=== PATIENT | female | born 1980 | race Caucasian/White ===

== ENCOUNTER → 2017-06-26 | Outpatient (CLI) | payer OTHER | END | disposition home or self-care (01) | LOC: MMGSC 14:01 | PROVIDERS: ATTEND Family Medicine | DX: E03.9 Hypothyroidism, unspecified (principal) | CPT/HCPCS: 36415; 84439; 84443 ==

== ENCOUNTER → 2018-10-16 | Outpatient (CLI) | payer OTHER ==
--- NOTE | 2018-10-16 10:43 | US ---
EXAMINATION TYPE: US pelvic complete DATE OF EXAM: 10/16/2018 COMPARISON: CT 2013 CLINICAL HISTORY: N92.0 Excessive and frequent menstruation.... TECHNIQUE: Transabdominal (TA). Date of LMP: 10/15/2018 EXAM MEASUREMENTS: Uterus: 10.7 x 5.6 x 6.8 cm Endometrial Stripe: 2.1 cm Right Ovary: 3.4 x 1.7 x 3.2 cm Left Ovary: 3.1 x 1.6 x 2.4 cm 1. Uterus: Retroverted wnl 2. Endometrium: thickened at 2.1 cm 3. Right Ovary: wnl 4. Left Ovary: wnl 5. Bilateral Adnexa: wnl 6. Posterior cul-de-sac: no free fluid Retroverted uterus is present. Endometrium is thickened at 21 mm which is markedly abnormal for proli ferative phase of menstrual cycle. No free fluid is seen in pelvic cul-de-sac. Both ovaries are seen. IMPRESSION: Suboptimal study without transpelvic evaluation to further characterize endometrium. Abno rmal thickening of endometrium is noted. Consider D&C to further evaluate.
== END | disposition home or self-care (01) ==
LOC: RADUSWWP 09:39
PROVIDERS: ATTEND Obstetrics & Gynecology
DX: R93.89 Abnormal findings on diagnostic imaging of other specified body structures (principal)
CPT/HCPCS: 76856

== ENCOUNTER → 2018-11-17 | Outpatient (CLI) | payer OTHER ==
[2018-11-17 17:02] LABS: Basophils % (A) 0 %; Eosinophils # (A) 0.1 k/uL (0-0.7); Eosinophils % (A) 1 %; HCT 38.8 % (34.0-46.0); HGB 12.9 gm/dL (11.4-16.0); Lymphocytes # (A) 1.4 k/uL (1.0-4.8); Lymphocytes % (A) 23 %; MCH 30.6 pg (25.0-35.0); MCHC 33.3 g/dL (31.0-37.0); Mean Platelet Volume 8.5; Monocytes # (A) 0.5 k/uL (0-1.0); Monocytes % (A) 9 %; Neutrophils # (A) 3.7 k/uL (1.3-7.7); Neutrophils % (A) 63 %; Platelet Count 169 k/uL (150-450); RBC 4.22 m/uL (3.80-5.40); RDW 13.7 % (11.5-15.5); WBC 5.9 k/uL (3.8-10.6)
== END | disposition home or self-care (01) ==
LOC: LABPAT 15:48
PROVIDERS: ATTEND Obstetrics & Gynecology
DX: Z01.812 Encounter for preprocedural laboratory examination (principal)
CPT/HCPCS: 36415; 85025

== ENCOUNTER 2018-11-25 06:19 | Day surgery (SDC) | payer OTHER ==
[2018-11-21 11:11] VITALS: BMI 23.3
--- NOTE | 2018-11-24 18:45 | P.HPOB ---
History of Present Illness H&P Date: 11/24/18 Chief Complaint: Menorrhagia with regular cycle This is a 38-year-old female 8 para 5 who presents for dilation and curettage with hysteroscopy and NovaSure endometrial ablation secondary to menorrhagia with regular cycle. She complains of heavy menses with significant abdominal cramping. Her menses are occurring every 24-28 days lasting 3-6 days with clots. On one of the day she can even leave the house. She has to change tampons and pads up to every 10 minutes. Pelvic ultrasound showed uterus measuring 10.7 x 5.6 x 6.7 cm and retroverted. Endometrial thickness was 2.1 cm. Normal ovaries were noted bilaterally. Obstetrical history: . History of 5 vaginal deliveries. History of 3 miscarriages. Gynecologic history: No history of sexual transmitted diseases. She has had a tubal ligation. Social history: She is . She is a [id number] mother. Review of Systems Constitutional: Denies chills, Denies fever Eyes: denies blurred vision, denies pain Ears, nose, mouth and throat: Denies headache, Denies sore throat Cardiovascular: Denies chest pain, Denies shortness of breath Respiratory: Denies cough Gastrointestinal: Denies abdominal pain, Denies diarrhea, Denies nausea, Denies vomiting Genitourinary: Reports menorrhagia Menstruation: Reports period heavy Integumentary: Denies pruritus, Denies rash Neurological: Denies numbness, Denies weakness Psychiatric: Reports anxiety, Reports change in libido Endocrine: Reports weight change, Denies fatigue Past Medical History Past Medical History: Thyroid Disorder Additional Past Medical History / Comment(s): heavy and painful with clotting menses. History of Any Multi-Drug Resistant Organisms: None Reported Past Surgical History: Hernia Repair, Tubal Ligation Additional Past Surgical History / Comment(s): LYMPH NODE FROM RIGHT GROIN REMOVED Past Anesthesia/Blood Transfusion Reactions: No Reported Reaction Additional Past Anesthesia/Blood Transfusion Reaction / Comment(s): no hx blood transfusion Past Psychological History: Anxiety Smoking Status: Never smoker Past Alcohol Use History: Occasional Past Drug Use History: None Reported - Past Family History Mother Family Medical History: No Reported History Medications and Allergies Home Medications Medication Instructions Recorded Confirmed Type Levothyroxine Sodium [Levoxyl] 75 mcg PO QAM 11/21/18 11/21/18 History Allergies Allergy/AdvReac Type Severity Reaction Status Date / Time No Known Allergies Allergy Verified 11/21/18 11:05 Exam Osteopathic Statement: *. No significant issues noted on an osteopathic structural exam other than those noted in the History and Physical/Consult. HEENT: Within normal limits Heart: Regular rate and rhythm Lungs: Clear to auscultation bilaterally Abdomen: Soft, nontender Pelvic exam: Uterus is retroverted, nontender, with no adnexal masses or tenderness noted. Extremities: Negative Homans Assessment and Plan (1) Menorrhagia with regular cycle Status: Acute Code(s): N92.0 - EXCESSIVE AND FREQUENT MENSTRUATION WITH REGULAR CYCLE SNOMED Code(s): 505134655 Plan: Proceed with dilation and curettage with hysteroscopy and NovaSure endometrial ablation. I have discussed the risks, benefits, and alternative therapies for the above- mentioned procedure and for both sedation/anesthesia as well as necessary blood products administration, if indicated, as they pertain to this patient. The patient has indicated her understanding and acceptance of the risks and procedures discussed.
[~2018-11-25 06:19] MED LIST: DEXAMETHASONE SOD PHOSPHATE 10 MG/ML 1 ML VIAL IV ONE; HYDROmorphone 0.5 MG/0.5 ML SYRINGE IVP PRN; LACTATED RINGERS 1,000 ML IV SCH; LIDOCAINE 1% 20 ML VIAL (10MG/ML) FOR IV START INTRADERMA PRN; MIDAZOLAM 2 MG/2 ML VIAL IV PRN; ONDANSETRON 4 MG/2 ML VIAL IVP ONE; SCOPOLAMINE 1.5MG/72HR PATCH TRANSDERM ONE
[2018-11-25] MEDS ORDERED: LACTATED RINGERS 1,000 ML IV ONE (06:50)
[2018-11-25] MEDS ORDERED: Pre Op ABX Message 1 EACH MISC MISCELLANE ONE (07:00)
[2018-11-25] MEDS ORDERED: MIDAZOLAM 2 MG/2 ML VIAL ONE (07:31)
[2018-11-25] MEDS ORDERED: LIDOCAINE 1% INJ 10MG/ML (20 ML MDV) ONE (07:31)
[2018-11-25] MEDS ORDERED: KETOROLAC 30 MG/ML 1 ML VIAL ONE (07:31)
[2018-11-25] MEDS ORDERED: fentaNYL (PF) 50 MCG/ML 2 ML AMP ONE (07:31)
[2018-11-25] MEDS ORDERED: PROPOFOL 10 MG/ML 20 ML VIAL IV ONE (07:31)
--- NOTE | 2018-11-25 08:03 | P.OP ---
Date of Procedure: 11/25/18 Preoperative Diagnosis: Menorrhagia with regular cycle Postoperative Diagnosis: Same Procedure(s) Performed: Dilation and curettage with hysteroscopy and NovaSure endometrial ablation Anesthesia: other (Mask general) Surgeon: Bertha Rea Estimated Blood Loss (ml): 15 Pathology: other (Endometrial curettings) Condition: stable Disposition: same day Indications for Procedure: This is a 38-year-old female 8 para 5 who presents for dilation and curettage with hysteroscopy and NovaSure endometrial ablation secondary to menorrhagia with regular cycle. She complains of heavy menses with significant abdominal cramping. Her menses are occurring every 24-28 days lasting 3-6 days with clots. On one of the day she can even leave the house. She has to change tampons and pads up to every 10 minutes. Pelvic ultrasound showed uterus measuring 10.7 x 5.6 x 6.7 cm and retroverted. Endometrial thickness was 2.1 cm. Normal ovaries were noted bilaterally. Operative Findings: Uterus is retroverted and sounded to 10 cm. Cervix is sounded to 4 cm. Upon hysteroscopy, a relatively uniform endometrial appearance was noted. Both tubal ostia are visualized. A moderate amount of endometrial curettings are obtained. No adnexal masses are palpated. Description of Procedure: The patient is taken to the operating room. She is placed in the dorsal lithotomy position after general anesthesia was given. She is prepped and draped in the normal sterile fashion. Bladder is drained with a catheter and then removed. Pelvic exam is performed under anesthesia. Uterus is found to be retroverted with no adnexal masses. She is placed in slight Trendelenburg position. A right angle retractor is used to visualize the cervix. The anterior lip of the cervix is grasped with a single-tooth tenaculum. Cervix is sounded to 4cm. Uterus is sounded to 10 cm. Cervix is gently dilated with Kaur dilators until a hysteroscope could be passed. Hysteroscopy is performed using normal saline. The above noted findings are noted. Next a polyp forceps is introduced. A moderate amount of tissue was obtained. Next medium-sized size sharp curette was placed. A moderate to large amount of endometrial curettings were obtained. Next NovaSure array was inserted into the endometrial cavity. Length was set at 6 cm and width was determined to be 4.8 cm. Next cavity assessment was completed and passed on the first try. Next NovaSure array was fired at 158 W for cc 7 seconds. Next the array was removed , inspected and then discarded. Next the hysteroscope was reinserted. Uniform charring was noted. Pictures were taken. Hysteroscope was removed. Single- tooth tenaculum was removed from the anterior lip of the cervix. Pressure was applied with a ring forcep for a minute. This was removed. Minimal bleeding was noted. All other instruments removed from the vagina. Sponge counts were correct. Patient is taken to recovery room in stable condition.
[2018-11-25 08:22] VITALS: RESP 16; TEMP 97.2
[2018-11-25 09:08] VITALS: BP 121/80; PULSE 67
[2018-11-25] MEDS ORDERED: ACETAMINOPHEN TAB 325 MG TAB PO ONE (09:10)
== END 2018-11-25 10:06 | disposition home or self-care (01) ==
LOC: OR 06:19
PROVIDERS: ATTEND Obstetrics & Gynecology
DX: N92.0 Excessive and frequent menstruation with regular cycle (principal); R93.89 Abnormal findings on diagnostic imaging of other specified body structures; E07.9 Disorder of thyroid, unspecified; F41.9 Anxiety disorder, unspecified; Z79.890 Hormone replacement therapy; Z98.51 Tubal ligation status
CPT/HCPCS: 81025; 88305; 58563; J2250; J1100; J2405; J2001; J3010; J1885; J2704

== ENCOUNTER → 2020-08-05 | Outpatient (CLI) | payer OTHER ==
--- NOTE | 2020-08-05 07:38 | US ---
EXAMINATION TYPE: US venous doppler duplex LE LT DATE OF EXAM: 08/05/2020 7:23 AM COMPARISON: NONE CLINICAL HISTORY: M79.662 PAIN LT LOWER LIMB,R22.42 SWELLING LT LOWER LIMB. SIDE PERFORMED: left TECHNIQUE: The lower extremity deep venous system is examined utilizing real time linear array sonog tarik with graded compression, doppler sonography and color-flow sonography. VESSELS IMAGED: External Iliac Vein (EIV) Common Femoral Vein Deep Femoral Vein Greater Saphenous Vein * Femoral Vein Popliteal Vein Small Saphenous Vein * Proximal Calf Veins (* superficial vessels) Left Leg: Negative for DVT Grayscale, color doppler, spectral doppler imaging performed of the deep veins of the left lower extr emity. There is normal flow, compressibility, vascular waveforms. IMPRESSION: No ultrasound evidence for acute DVT in the left lower extremity.
== END | disposition home or self-care (01) ==
LOC: RADUSWWP 07:00
PROVIDERS: ATTEND Family Medicine
DX: M79.662 Pain in left lower leg (principal); R22.42 Localized swelling, mass and lump, left lower limb

== ENCOUNTER 2021-05-31 19:05 | Emergency (ER) | payer OTHER ==
[2021-05-31 19:47] VITALS: RESP 18
[2021-05-31 19:50] LABS: Glucose,Whole Blood 109 mg/dL (75-99)
[2021-05-31] MEDS ORDERED: MECLIZINE 12.5 MG TAB PO STA (20:10)
[2021-05-31] MEDS ORDERED: SODIUM CHLORIDE 0.9% 1,000 ML IV STA (20:10)
--- NOTE | 2021-05-31 20:35 | XR ---
EXAMINATION TYPE: XR chest 2V DATE OF EXAM: 05/31/2021 CLINICAL HISTORY: shortness of breath; chest pain. TECHNIQUE: Frontal and lateral view of the chest. COMPARISON: None FINDINGS: The cardiomediastinal silhouette is within normal limits for size. Pulmonary vasculature i s normal. There is a right infrahilar focal airspace opacity appears linear on lateral view. No pleu ral effusion. No pneumothorax seen. No acute displaced osseous fracture. IMPRESSION: Right infrahilar airspace opacity most likely represents left lower lobe atelectasis. Less likely pne umonia.
[2021-05-31 20:47] LABS: HCT 44.9 % (34.0-46.0); HGB 15.4 gm/dL (11.4-16.0); MCH 31.4 pg (25.0-35.0); MCHC 34.3 g/dL (31.0-37.0); MCV 91.3 fL (80.0-100.0); Mean Platelet Volume 9.3; Platelet Count 166 k/uL (150-450); RBC 4.91 m/uL (3.80-5.40); RDW 13.7 % (11.5-15.5)
--- NOTE | 2021-05-31 20:47 | ED ---
Dizziness HPI - General Chief Complaint: Dizziness Stated Complaint: SAUNDRA/Dizziness Time Seen by Provider: 05/31/21 19:58 Source: patient Mode of arrival: ambulatory Limitations: no limitations - History of Present Illness Initial Comments: 40 year-old female patient presents to the emergency department reporting dizziness with standing, chest pressure, and fuzzy feeling in her head. State she feels like she cannot think straight. She is also reporting photophobia but no headache. Denies blurred or double vision. States that symptoms started this morning and have persisted throughout the day. States she just does not feel well. She denies any nausea, vomiting, shortness of breath, numbness, tingling, weakness or extremities. Denies fever or chills. Does have history of hypothyroid and does take Synthroid for this. Denies any other medications. Has not had covid vaccine. Reports occasional alcohol and marijuana use. Denies chance of . Has had uterine ablation. Patient denies any recent rash, cough, abdominal pain, diarrhea, constipation, back pain, hematuria, dysuria, urinary urgency, urinary frequency, or any other complaints. - Related Data Home Medications Medication Instructions Recorded Confirmed Levothyroxine Sodium [Levoxyl] 75 mcg PO DAILY 11/21/18 05/31/21 Allergies Allergy/AdvReac Type Severity Reaction Status Date / Time No Known Allergies Allergy Verified 05/31/21 20:23 Review of Systems ROS Statement: Those systems with pertinent positive or pertinent negative responses have been documented in the HPI. ROS Other: All systems not noted in ROS Statement are negative. Past Medical History Past Medical History: No Reported History History of Any Multi-Drug Resistant Organisms: None Reported Past Surgical History: Hernia Repair, Tubal Ligation Additional Past Surgical History / Comment(s): LYMPH NODE FROM RIGHT GROIN REMOVED Past Psychological History: No Psychological Hx Reported Smoking Status: Never smoker Past Alcohol Use History: Occasional Past Drug Use History: None Reported General Exam Limitations: no limitations General appearance: alert, in no apparent distress, other (Physical well- developed, well-nourished adult female patient in no acute distress. Vital signs upon presentation temperature 98.9F, pulse 69, respirations 18, blood pressure 123/72, pulse ox 99% on room air.) Eye exam: Present: normal appearance, PERRL, EOMI. Absent: scleral icterus, conjunctival injection, periorbital swelling ENT exam: Present: normal exam, normal oropharynx, mucous membranes moist Respiratory exam: Present: normal lung sounds bilaterally. Absent: respiratory distress, wheezes, rales, rhonchi, stridor Cardiovascular Exam: Present: regular rate, normal rhythm, normal heart sounds. Absent: systolic murmur, diastolic murmur, rubs, gallop, clicks GI/Abdominal exam: Present: soft, normal bowel sounds. Absent: distended, tenderness, guarding, rebound, rigid Neurological exam: Present: alert, oriented X3, CN II-XII intact Expanded Speech: Present: fluid speech Cranial nerves: EOM's Intact: Normal, Nystagmus: Normal Motor strength exam: RUE: 5, LUE: 5, RLE: 5, LLE: 5 Psychiatric exam: Present: normal affect, normal mood Skin exam: Present: warm, dry, intact, normal color. Absent: rash Course Vital Signs 05/31/21 05/31/21 19:44 22:19 Temperature 98.9 F 98.4 F Pulse Rate 69 54 L Respiratory 18 18 Rate Blood Pressure 123/72 118/84 O2 Sat by Pulse 99 99 Oximetry EKG Findings - EKG Comments: EKG Findings:: EKG obtained at 2006 shows normal sinus rhythm with a prolonged QT interval. Ventricular rate is 63, TX interval 188, QRS duration 94, QTC 452, QTc 462. No evidence of ST elevation or depression. Medical Decision Making - Medical Decision Making 40 year-old female patient presented for evaluation of dizziness, photophobia, and a "fuzzy" feeling in her head. States she felt weak and tired. Physical examination was unremarkable. She is neurologically intact without focal deficit. Labs reviewed and showed decreased potassium level and mildly elevated liver enzymes. She did test positive for COVID. EKG showed sinus rhythm with prolonged QT interval. I did discuss christianity on infusion including risks versus benefits. They're given information back. She did decide to receive the infusion. She did have the infusion with no adverse reactions. We discharge. The primary care physician for recheck in 1-2 days. Return parameters were discussed in detail. She verbalizes understanding and agrees with this plan. My attending is Dr. Giang. - Lab Data Result diagrams: 05/31/21 20:23 05/31/21 20:23 Lab Results 05/31/21 05/31/21 05/31/21 Range/Units 19:48 20:23 20:23 WBC 4.0 (3.8-10.6) k/uL RBC 4.91 (3.80-5.40) m/uL Hgb 15.4 (11.4-16.0) gm/dL Hct 44.9 (34.0-46.0) % MCV 91.3 (80.0-100.0) fL MCH 31.4 (25.0-35.0) pg MCHC 34.3 (31.0-37.0) g/dL RDW 13.7 (11.5-15.5) % Plt Count 166 (150-450) k/uL MPV 9.3 Neutrophils % (Manual) 60 % Lymphocytes % (Manual) 30 % Monocytes % (Manual) 10 % Neutrophils # (Manual) 2.40 (1.3-7.7) k/uL Lymphocytes # (Manual) 1.20 (1.0-4.8) k/uL Monocytes # (Manual) 0.40 (0-1.0) k/uL Nucleated RBCs 0 (0-0) /100 WBC Manual Slide Review Performed Sodium (137-145) mmol/L Potassium (3.5-5.1) mmol/L Chloride (98-107) mmol/L Carbon Dioxide (22-30) mmol/L Anion Gap mmol/L BUN (7-17) mg/dL Creatinine (0.52-1.04) mg/dL Est GFR (CKD-EPI)AfAm (>60 ml/min/1.73 sqM) Est GFR (CKD-EPI)NonAf (>60 ml/min/1.73 sqM) Glucose (74-99) mg/dL POC Glucose (mg/dL) 109 H (75-99) mg/dL POC Glu [employer] ID Rickie Pérez Plasma Lactic Acid Romero (0.7-2.0) mmol/L Calcium (8.4-10.2) mg/dL Magnesium (1.6-2.3) mg/dL Total Bilirubin (0.2-1.3) mg/dL AST (14-36) U/L ALT (4-34) U/L Alkaline Phosphatase (38-126) U/L Troponin I (0.000-0.034) ng/mL Total Protein (6.3-8.2) g/dL Albumin (3.5-5.0) g/dL Urine Color Yellow Urine Appearance Cloudy H (Clear) Urine pH 6.5 (5.0-8.0) Ur Specific [place] 1.025 (1.001-1.035) Urine Protein 1+ H (Negative) Urine Glucose (UA) Negative (Negative) Urine Ketones 2+ H (Negative) Urine Blood Trace H (Negative) Urine Nitrite Negative (Negative) Urine Bilirubin Negative (Negative) Urine Urobilinogen 3.0 (<2.0) mg/dL Ur Leukocyte Esterase Small H (Negative) Urine RBC 17 H (0-5) /hpf Urine WBC 8 H (0-5) /hpf Ur Squamous Epith Cells 32 H (0-4) /hpf Urine Mucus Many H (None) /hpf Urine HCG, Qual (Not Detectd) Coronavirus (PCR) (Not Detectd) 05/31/21 05/31/21 05/31/21 Range/Units 20:23 20:23 20:23 WBC (3.8-10.6) k/uL RBC (3.80-5.40) m/uL Hgb (11.4-16.0) gm/dL Hct (34.0-46.0) % MCV (80.0-100.0) fL MCH (25.0-35.0) pg MCHC (31.0-37.0) g/dL RDW (11.5-15.5) % Plt Count (150-450) k/uL MPV Neutrophils % (Manual) % Lymphocytes % (Manual) % Monocytes % (Manual) % Neutrophils # (Manual) (1.3-7.7) k/uL Lymphocytes # (Manual) (1.0-4.8) k/uL Monocytes # (Manual) (0-1.0) k/uL Nucleated RBCs (0-0) /100 WBC Manual Slide Review Sodium 138 (137-145) mmol/L Potassium 3.4 L (3.5-5.1) mmol/L Chloride 105 (98-107) mmol/L Carbon Dioxide 23 (22-30) mmol/L Anion Gap 10 mmol/L BUN 23 H (7-17) mg/dL Creatinine 0.55 (0.52-1.04) mg/dL Est GFR (CKD-EPI)AfAm >90 (>60 ml/min/1.73 sqM) Est GFR (CKD-EPI)NonAf >90 (>60 ml/min/1.73 sqM) Glucose 86 (74-99) mg/dL POC Glucose (mg/dL) (75-99) mg/dL POC Glu [employer] ID Plasma Lactic Acid Romero 1.4 (0.7-2.0) mmol/L Calcium 9.4 (8.4-10.2) mg/dL Magnesium 2.1 (1.6-2.3) mg/dL Total Bilirubin 0.8 (0.2-1.3) mg/dL AST 40 H (14-36) U/L ALT 38 H (4-34) U/L Alkaline Phosphatase 78 (38-126) U/L Troponin I <0.012 (0.000-0.034) ng/mL Total Protein 7.6 (6.3-8.2) g/dL Albumin 4.7 (3.5-5.0) g/dL Urine Color Urine Appearance (Clear) Urine pH (5.0-8.0) Ur Specific [place] (1.001-1.035) Urine Protein (Negative) Urine Glucose (UA) (Negative) Urine Ketones (Negative) Urine Blood (Negative) Urine Nitrite (Negative) Urine Bilirubin (Negative) Urine Urobilinogen (<2.0) mg/dL Ur Leukocyte Esterase (Negative) Urine RBC (0-5) /hpf Urine WBC (0-5) /hpf Ur Squamous Epith Cells (0-4) /hpf Urine Mucus (None) /hpf Urine HCG, Qual (Not Detectd) Coronavirus (PCR) (Not Detectd) 05/31/21 05/31/21 Range/Units 20:23 20:23 WBC (3.8-10.6) k/uL RBC (3.80-5.40) m/uL Hgb (11.4-16.0) gm/dL Hct (34.0-46.0) % MCV (80.0-100.0) fL MCH (25.0-35.0) pg MCHC (31.0-37.0) g/dL RDW (11.5-15.5) % Plt Count (150-450) k/uL MPV Neutrophils % (Manual) % Lymphocytes % (Manual) % Monocytes % (Manual) % Neutrophils # (Manual) (1.3-7.7) k/uL Lymphocytes # (Manual) (1.0-4.8) k/uL Monocytes # (Manual) (0-1.0) k/uL Nucleated RBCs (0-0) /100 WBC Manual Slide Review Sodium (137-145) mmol/L Potassium (3.5-5.1) mmol/L Chloride (98-107) mmol/L Carbon Dioxide (22-30) mmol/L Anion Gap mmol/L BUN (7-17) mg/dL Creatinine (0.52-1.04) mg/dL Est GFR (CKD-EPI)AfAm (>60 ml/min/1.73 sqM) Est GFR (CKD-EPI)NonAf (>60 ml/min/1.73 sqM) Glucose (74-99) mg/dL POC Glucose (mg/dL) (75-99) mg/dL POC Glu [employer] ID Plasma Lactic Acid Romero (0.7-2.0) mmol/L Calcium (8.4-10.2) mg/dL Magnesium (1.6-2.3) mg/dL Total Bilirubin (0.2-1.3) mg/dL AST (14-36) U/L ALT (4-34) U/L Alkaline Phosphatase (38-126) U/L Troponin I (0.000-0.034) ng/mL Total Protein (6.3-8.2) g/dL Albumin (3.5-5.0) g/dL Urine Color Urine Appearance (Clear) Urine pH (5.0-8.0) Ur Specific [place] (1.001-1.035) Urine Protein (Negative) Urine Glucose (UA) (Negative) Urine Ketones (Negative) Urine Blood (Negative) Urine Nitrite (Negative) Urine Bilirubin (Negative) Urine Urobilinogen (<2.0) mg/dL Ur Leukocyte Esterase (Negative) Urine RBC (0-5) /hpf Urine WBC (0-5) /hpf Ur Squamous Epith Cells (0-4) /hpf Urine Mucus (None) /hpf Urine HCG, Qual Not Detected (Not Detectd) Coronavirus (PCR) Detected A (Not Detectd) Disposition Clinical Impression: COVID-19, Dizziness Disposition: HOME SELF-CARE Condition: Good Instructions (If sedation given, give patient instructions): Coronavirus Disease 2019 (COVID-19), Dizziness (ED) Additional Instructions: Rest. Increase fluids. You will have to quarantine for 10 days or until fevers have resolved, whichever is longer. Follow up with primary care physician for recheck in 1-2 days. Return for any new, worsening, or concerning symptoms. Is patient prescribed a controlled substance at d/c from ED?: No Referrals: Kassidy Ellis MD [Primary Care Provider] - 1-2 days Time of Disposition: 23:45
[2021-05-31 20:59] LABS: ALT 38 U/L (4-34); AST 40 U/L (14-36); African American GFR (CKD) >90 (>60 ml/min/1.73 sqM); Albumin 4.7 g/dL (3.5-5.0); Alkaline Phosphatase 78 U/L (38-126); Anion Gap 10 mmol/L; Blood Urea Nitrogen 23 mg/dL (7-17); Calcium 9.4 mg/dL (8.4-10.2); Carbon Dioxide 23 mmol/L (22-30); Chloride 105 mmol/L (98-107); Glucose 86 mg/dL (74-99); Magnesium 2.1 mg/dL (1.6-2.3); Non-African American GFR(CKD) >90 (>60 ml/min/1.73 sqM); Potassium 3.4 mmol/L (3.5-5.1); Sodium 138 mmol/L (137-145); Total Bilirubin 0.8 mg/dL (0.2-1.3); Total Protein 7.6 g/dL (6.3-8.2)
[2021-05-31 21:19] LABS: Appearance,Urine Cloudy (Clear); Bilirubin,Urine Negative (Negative); Blood,Urine Trace (Negative); Color,Urine Yellow; Glucose,Urine (UA) Negative (Negative); Ketones,Urine 2+ (Negative); Leukocyte Esterase,Urine Small (Negative); Mucus,Urine Many /hpf; Nitrite,Urine Negative (Negative); PH, Urine 6.5 (5.0-8.0); Protein,Urine 1+ (Negative); RBC,Urine 17 /hpf (0-5); Specific Gravity,Urine 1.025 (1.001-1.035); Squamous Epithelial Cell,Urine 32 /hpf (0-4); WBC,Urine 8 /hpf (0-5)
[2021-05-31] MEDS ORDERED: POTASSIUM CHLORIDE ER 20 MEQ TAB.ER PO STA (21:30)
[2021-05-31 21:35] LABS: Neutrophils % (M) 60 %; Nucleated Red Blood Cells 0 /100 WBC (0-0); Total Cells Counted 100
[2021-05-31] MEDS ORDERED: CASIRIVIMAB (REGN10933) (EUA) 600 MG, IMDEVIMAB (REGN10987) (EUA) 600 MG in SODIUM CHLO... IVPB ONE (22:15)
[2021-05-31] MEDS ORDERED: SODIUM CHLORIDE 0.9% 50 ML IVPB ONE (22:15)
[2021-05-31 23:53] VITALS: BP 112/79; PULSE 62; TEMP 98.2
== END 2021-05-31 23:52 | disposition home or self-care (01) ==
LOC: EC 19:05
DX: U07.1 COVID-19 (principal); R42 Dizziness and giddiness; E03.9 Hypothyroidism, unspecified; Z79.890 Hormone replacement therapy
CPT/HCPCS: 36415; 71046; 80053; 81001; 81025; 83605; 83735; 84484; 85025; 87635; 93005; 96360; 96365; 99285

== ENCOUNTER 2021-11-14 19:19 | Emergency (ER) | payer OTHER ==
[2021-11-14 19:40] VITALS: TEMP 98.9
--- NOTE | 2021-11-14 21:48 | XR ---
EXAMINATION TYPE: XR hand complete LT DATE OF EXAM: 11/14/2021 9:42 PM INDICATION: Patient age:Female; 41 years old; Reason for study: laceration; COMPARISON: None TECHNIQUE: 3 views of the left hand were obtained. FINDINGS: Normal alignment of the visualized joints. No acute osseous pathology is identified. No e vidence of soft tissue swelling. No radiopaque foreign bodies IMPRESSION: No acute osseous pathology. No radiopaque foreign bodies
--- NOTE | 2021-11-14 22:04 | ED ---
General Adult HPI - General Chief complaint: Wound/Laceration Stated complaint: left hand pain Time Seen by Provider: 11/14/21 20:47 Source: patient Mode of arrival: ambulatory Limitations: no limitations - History of Present Illness Initial comments: This 41-year-old Presents Emergency Department with a Puncture Wound/Laceration to over her left palm. Patient states she was cutting up marijuana one then scissor slipped and stabbed into the volar aspect of her left hand. Patient states it did bleed at first however the bleeding has stopped and she is just worried that she cut into the tendon. Patient states this happened at 1:00 this afternoon. Patient states she took Motrin for the pain which did seem to relieve the pain. Patient states she is up-to-date on her tetanus vaccine and has received it within the last 5 years. Patient denies any chest pain, shortness of breath, abdominal pain, nausea, vomiting, headache, change in vision or change in bowel or bladder. - Related Data Home Medications Medication Instructions Recorded Confirmed Levothyroxine Sodium [Levoxyl] 75 mcg PO DAILY 11/21/18 05/31/21 Previous Rx's Medication Instructions Recorded Cephalexin [Keflex] 500 mg PO Q8HR #15 cap 11/14/21 Allergies Allergy/AdvReac Type Severity Reaction Status Date / Time No Known Allergies Allergy Verified 11/14/21 19:40 Review of Systems ROS Statement: Those systems with pertinent positive or pertinent negative responses have been documented in the HPI. ROS Other: All systems not noted in ROS Statement are negative. Past Medical History Past Medical History: No Reported History History of Any Multi-Drug Resistant Organisms: None Reported Past Surgical History: Hernia Repair, Tubal Ligation Additional Past Surgical History / Comment(s): LYMPH NODE FROM RIGHT GROIN REMOVED Past Psychological History: Anxiety Smoking Status: Never smoker Past Alcohol Use History: Occasional Past Drug Use History: Marijuana General Exam Limitations: no limitations General appearance: alert, in no apparent distress Head exam: Present: atraumatic, normocephalic Eye exam: Present: PERRL, EOMI Pupils: Present: normal accommodation Respiratory exam: Present: normal lung sounds bilaterally. Absent: respiratory distress, wheezes, rales, rhonchi, stridor Cardiovascular Exam: Present: regular rate, normal rhythm, normal heart sounds. Absent: systolic murmur, diastolic murmur, rubs, gallop, clicks GI/Abdominal exam: Present: soft, normal bowel sounds. Absent: distended, tenderness, guarding, rebound, rigid Extremities exam: Present: tenderness, normal capillary refill (Ulnar and radial pulses intact), other (Patient with pain to left hand, second finger metacarpal and proximal phalanx. Ecchymosis noted surrounding laceration. Patient does have full sensation in her finger and hand, however patient is only able to bend her finger to about 90 and she is only able to bend her finger at distal/mid phalnx) Neurological exam: Present: alert, oriented X3, CN II-XII intact Psychiatric exam: Present: normal affect, normal mood Skin exam: Present: warm, dry, intact, normal color. Absent: rash Course Vital Signs 11/14/21 11/14/21 19:37 22:25 Temperature 98.9 F Pulse Rate 70 60 Respiratory 18 20 Rate Blood Pressure 122/76 119/75 O2 Sat by Pulse 99 97 Oximetry Procedures - Orthopedic Splinting/Casting Injury #1 Side: left Upper Extremity Injury Location: finger Upper Extremity Immobilizer: aluminum form splint (Placed on volar side of second finger and poornima taped to third finger. Finger slightly flexed.), poornima tape Lower Extremity Immobilizer: poornima tape, [place] wrap Medical Decision Making - Medical Decision Making 41-year-old female since emergency Department with laceration to her left palm, volar surface of left hand, second digit. Possible flexor tendon injury of her second digit left hand. Sensation was intact, ulnar and radial pulses palpable. Puncture laceration of her 0.5 cm at left hand second digit volar surface, ov er the carpal. Ecchymosis to left second finger knuckle. Decreased range of motion of left hand second digit. X-ray with no acute abnormalities seen. Patient was put in a splint with poornima tape and sent to follow-up with orthopedic hand surgeon in next 24-48 hours. Antibiotics were given to prevent infection. Strict return precautions were discussed. Patient verbally agreed to plan. Patient sent home in stable condition. Disposition Clinical Impression: Laceration of flexor tendon of left hand Disposition: HOME SELF-CARE Condition: Stable Instructions (If sedation given, give patient instructions): Laceration (ED) Additional Instructions: Please return to the emergency department with any concerning, new, or worsening symptoms. Follow-up with orthopedic hand surgeon in next 24-48 hours. Take antibiotics as directed Prescriptions: Cephalexin [Keflex] 500 mg PO Q8HR #15 cap Is patient prescribed a controlled substance at d/c from ED?: No Referrals: Kassidy Ellis MD [Primary Care Provider] - 1-2 days Bashir Carrillo DO [Doctor of Osteopathic Medicine] - 1-2 days Time of Disposition: 22:24
[2021-11-14 22:27] VITALS: BP 119/75; PULSE 60; RESP 20
== END 2021-11-14 22:51 | disposition home or self-care (01) ==
LOC: EC 19:19
DX: S61.412A Laceration without foreign body of left hand, initial encounter (principal); F41.9 Anxiety disorder, unspecified; F12.90 Cannabis use, unspecified, uncomplicated; Z98.51 Tubal ligation status; W26.8XXA Contact with other sharp object(s), not elsewhere classified, initial encounter
CPT/HCPCS: 99283

== ENCOUNTER 2024-07-04 15:39 | Emergency (ER) | payer OTHER ==
--- NOTE | 2024-07-04 16:07 | ED ---
General Adult HPI - General Chief complaint: Extremity Injury, Lower Stated complaint: R shoulder pain Time Seen by Provider: 07/04/24 15:51 Source: patient, RN notes reviewed Mode of arrival: ambulatory Limitations: no limitations - History of Present Illness Initial comments: This is a 44-year-old female presents emergency department accompanied by her for chief complaint of acute on chronic right shoulder pain that has been worsening over the past week. She states that the past 6 months she has been experiencing right shoulder pain and swelling of her axilla, she was evaluated by her primary care provider where she was informed to try to minimize usage of the right shoulder. States that over the past week the right forearm has felt swollen and she has pain with range of motion of the elbow. Denies shortness of breath, difficulty breathing, heart palpitations, dizziness lightheadedness. denies recent trauma or injuries to the right arm or shoulder, denies previous surgeries as well. - Related Data Home Medications Medication Instructions Recorded Confirmed Levothyroxine Sodium [Levoxyl] 75 mcg PO DAILY 11/21/18 05/31/21 Previous Rx's Medication Instructions Recorded Cephalexin [Keflex] 500 mg PO Q8HR #15 cap 11/14/21 predniSONE 50 mg PO DAILY #5 tab 07/04/24 Allergies Allergy/AdvReac Type Severity Reaction Status Date / Time No Known Allergies Allergy Verified 07/04/24 15:57 Review of Systems ROS Statement: Those systems with pertinent positive or pertinent negative responses have been documented in the HPI. ROS Other: All systems not noted in ROS Statement are negative. Past Medical History Past Medical History: No Reported History Additional Past Medical History / Comment(s): low thyroid History of Any Multi-Drug Resistant Organisms: None Reported Past Surgical History: Hernia Repair, Tubal Ligation Additional Past Surgical History / Comment(s): LYMPH NODE FROM RIGHT GROIN REMOVED Past Psychological History: Anxiety Smoking Status: Never smoker Past Alcohol Use History: Occasional Past Drug Use History: Marijuana General Exam Limitations: no limitations General appearance: alert, in no apparent distress Eye exam: Present: normal appearance, PERRL, EOMI. Absent: scleral icterus, conjunctival injection, periorbital swelling Neck exam: Present: normal inspection. Absent: tenderness, meningismus, lymphadenopathy Respiratory exam: Present: normal lung sounds bilaterally. Absent: respiratory distress, wheezes, rales, rhonchi, stridor Cardiovascular Exam: Present: regular rate, normal rhythm, normal heart sounds. Absent: systolic murmur, diastolic murmur, rubs, gallop, clicks GI/Abdominal exam: Present: soft, normal bowel sounds. Absent: distended, tenderness, guarding, rebound, rigid Right Shoulder Exam: Present: normal inspection, full ROM, tenderness (mild over anterior shoulder with palpation, full ROM intact) Upper Arm exam: Present: normal inspection, full ROM, tenderness (medial epicondyle with no overlying edema or erythema, no crepitus) Forearm Wrist exam: Present: normal inspection, full ROM Neuro motor exam: Present: wrist extension intact, thumb opposition intact Vascular: Present: normal capillary refill, radial pulse (2+) Back exam: Present: normal inspection Skin exam: Present: warm, dry, intact, normal color. Absent: rash Course Vital Signs 07/04/24 07/04/24 15:53 18:00 Temperature 98.4 F 98.1 F Pulse Rate 65 66 Respiratory 17 18 Rate Blood Pressure 123/79 119/72 O2 Sat by Pulse 100 100 Oximetry Medical Decision Making - Medical Decision Making Was pt. sent in by a medical professional or institution (, PA, VEHICLE RETURN ASSOCIATE, urgent care, hospital, or [facility]...) When possible be specific @ -No Did you speak to anyone other than the patient for history (EMS, parent, family, police, friend...)? What history was obtained from this source @ -No Did you review nursing and triage notes (agree or disagree)? Why? @ -I reviewed and agree with nursing and triage notes Were old charts reviewed (outside hosp., previous admission, EMS record, old EKG, old radiological studies, urgent care reports/EKG's, [facility] records)? Report findings @ -No old charts were reviewed Differential Diagnosis (chest pain, altered mental status, abdominal pain women, abdominal pain men, vaginal bleeding, weakness, fever, dyspnea, syncope, headache, dizziness, GI bleed, back pain, seizure, CVA, palpatations, mental health, musculoskeletal)? @ -Differential Musculoskeletal Muscular strain, contusion, ligament sprain, fracture, arthritis, septic arthritis, bursitis, cellulitis, muscle spasm, nerve compression, DVT, arterial occlusion, herpes zoster, electrolyte abnormality, tumor.... This is not meant to be in all inclusive list EKG interpreted by me (3pts min.). @ -None X-rays interpreted by me (1pt min.). @ -XR the right shoulder reveals mild osteoarthrosis with no acute osseous pathology X-ray of the right elbow there is no evidence for acute fracture no evidence of joint effusion or soft tissue swelling CT interpreted by me (1pt min.). @ -None done U/S interpreted by me (1pt. min.). @ -Duplex ultrasound of the right upper extremity negative for DVT What testing was considered but not performed or refused? (CT, X-rays, U/S, labs)? Why? @ -None What meds were considered but not given or refused? Why? @ -None Did you discuss the management of the patient with other professionals (professionals i.e. , PA, VEHICLE RETURN ASSOCIATE, lab, RT, psych nurse, elementary school social worker, reflexologist, teacher, precinct commanding officer, telehealth case manager)? Give summary @ -No Was smoking cessation discussed for >3mins.? @ -No Was critical care preformed (if so, how long)? @ -No Were there social determinants of health that impacted care today? How? (Homelessness, low income, unemployed, alcoholism, drug addiction, transportation, low edu. Level, literacy, decrease access to med. care, long term, rehab)? @ -No Was there de-escalation of care discussed even if they declined (Discuss DNR or withdrawal of care, Hospice)? DNR status @ -No What co-morbidities impacted this encounter? (DM, HTN, Smoking, COPD, CAD, Cancer, CVA, ARF, Chemo, Hep., AIDS, mental health diagnosis, sleep apnea, morbid obesity)? @ -None Was patient admitted / discharged? Hospital course, mention meds given and route, prescriptions, significant lab abnormalities, going to OR and other pertinent info. @ -Discharge. 44-year-old female with right shoulder and arm pain that has been persistent over the past 6 months. Patient is noted to have full range of motion of the right arm with no neurovascular or muscular deficits noted. Due to patient expressing symptoms of right arm heaviness and pain patient is sent for ultrasound of the upper extremity that is negative for DVT. Patient's pulses are intact. Patient is persistent on receiving x-ray imaging of the shoulder as this pain has been persistent over the past 6 months and she has not undergone any x-ray imaging. X-ray imaging of the right shoulder and right elbow are negative for acute process. Recommend the patient continue to follow-up outpatient with her primary care provider for further evaluation of potential further imaging. discussed with Dr. Boucher Undiagnosed new problem with uncertain prognosis? @ -No Drug Therapy requiring intensive monitoring for toxicity (Heparin, Nitro, Insulin, Cardizem)? @ -No Were any procedures done? @ -No Diagnosis/symptom? @ -Right shoulder pain Acute, or Chronic, or Acute on Chronic? @ -Acute Uncomplicated (without systemic symptoms) or Complicated (systemic symptoms)? @ -Uncomplicated Side effects of treatment? @ -No Exacerbation, Progression, or Severe Exacerbation? @ -No Poses a threat to life or bodily function? How? (Chest pain, USA, ME, pneumonia, PE, COPD, DKA, ARF, appy, cholecystitis, CVA, Diverticulitis, Homicidal, Suicidal, threat to staff... and all critical care pts) @ -No Disposition Clinical Impression: Right shoulder pain, Right elbow pain Disposition: HOME SELF-CARE Condition: Good Instructions (If sedation given, give patient instructions): Exercises for Shoulder Flexion and Extension (ED), Exercises for Internal and External Shoulder Rotation (ED), Exercises for Shoulder Abduction and Adduction (ED) Additional Instructions: Return to the emergency department for any new or worsening symptoms. Complete full course of steroids as prescribed. Recommend follow-up outpatient with primary care provider within the next week for further evaluation. continue symptomatic treatment at home. Prescriptions: predniSONE 50 mg PO DAILY #5 tab Is patient prescribed a controlled substance at d/c from ED?: No Referrals: Kassidy Ellis MD [Primary Care Provider] - 1-2 days Time of Disposition: 17:52
[2024-07-04] MEDS: KETOROLAC 15 MG/ML 1 ML VIAL IM STA (16:21)
--- NOTE | 2024-07-04 17:00 | US ---
EXAMINATION TYPE: US venous doppler duplex UE RT DATE OF EXAM: 07/04/2024 COMPARISON: NONE CLINICAL INDICATION: Female, 44 years old with history of RUE pain, swelling; Pt states right arm [place] n x 6 months SIDE PERFORMED: Right Right Arm: Negative for DVT Grayscale, color doppler, spectral doppler imaging performed of the deep veins of the right upper ext remity. There is normal flow, compressibility and vascular waveforms. IMPRESSION: No evidence for deep vein thrombosis. [facility], Workstation: [id number], 07/04/2024 4:57 PM
[2024-07-04] MEDS: methylPREDNISolone SOD SUCCI 125 MG/2 ML VIAL IM ONE (17:26)
--- NOTE | 2024-07-04 17:44 | XR ---
EXAMINATION TYPE: XR elbow complete RT DATE OF EXAM: 07/04/2024 5:24 PM CLINICAL INDICATION: Female, 44 years old with history of pain; COMPARISON: None TECHNIQUE: XR elbow complete RT; elbow was examined in AP, lateral, and oblique projections. FINDINGS: No evidence of any acute osseous pathology, joint dislocation, or soft tissue swelling is n oted. No evidence of joint effusion is present. IMPRESSION: No evidence of acute fracture. [facility], , 07/04/2024 5:42 PM
--- NOTE | 2024-07-04 17:45 | XR ---
EXAMINATION TYPE: XR shoulder complete RT DATE OF EXAM: 07/04/2024 5:24 PM CLINICAL INDICATION: Female, 44 years old with history of pain; COMPARISON: None TECHNIQUE: XR shoulder complete RT; examined in AP, internally rotated and scapular Y projections. FINDINGS: No evidence of acute osseous pathology, joint dislocation, or soft tissue swelling. The remaining po rtions of the visualized chest are unremarkable. Mild degeneration changes of the acromion and dista l clavicle. IMPRESSION: 1. No acute osseous pathology. 2. Mild shoulder osteoarthrosis. [facility], , 07/04/2024 5:43 PM
[2024-07-04 18:01] VITALS: BP 119/72; PULSE 66; RESP 18; TEMP 98.1
== END 2024-07-04 18:02 | disposition home or self-care (01) ==
LOC: EC 15:39
CPT/HCPCS: 96372; 99284

== ENCOUNTER → 2024-09-02 | Outpatient (CLI) | payer OTHER ==
--- NOTE | 2024-09-09 05:25 | MR ---
EXAMINATION TYPE: MR shoulder RT wo con DATE OF EXAM: 09/02/2024 9:06 PM COMPARISON: Right shoulder x-rays August 03, 2024 CLINICAL INDICATION: Female, 44 years old with history of M25.511 RT SHOULDER PAIN, Right shoulder pa in with limited mobility x1 yr, TECHNIQUE: Multiplanar, multisequence imaging of the right shoulder is performed without contrast. FINDINGS: Rotator Cuff: Intact infraspinatus tendon. Some increased signal along the anterior muscle bulk of th e supraspinatus tendon. Intact subscapularis tendon. Rotator cuff muscle bulk is preserved. Acromioclavicular Joint: Mild narrowing and capsular hypertrophy. No significant spine. Distal acromi on morphology unremarkable. Glenohumeral Joint: No significant effusion. No significant spurring. Labrum: Increased signal superior labrum. Biceps Tendon: The long head of biceps is in normal location within bicipital groove. Bone marrow signal: Subchondral cystic change involving the superior aspect of the osseous glenoid. Other: No additional significant abnormality is appreciated. IMPRESSION: 1. Probable superior labral tear with adjacent subchondral cystic change involving osseous glenoid. 2. Mild tendinosis of supraspinatus tendon. [facility], , 09/09/2024 5:23 AM
== END | disposition home or self-care (01) ==
LOC: RADMRIMAIN 20:15
PROVIDERS: ATTEND Orthopaedic Surgery
DX: M67.813 Other specified disorders of tendon, right shoulder (principal)

== ENCOUNTER → 2024-09-15 | Outpatient (CLI) | payer OTHER ==
--- NOTE | 2024-09-15 10:49 | USB ---
Reason for Exam: Clinical finding. Patient History: Menarche at age 11. First Full-Term at age 22. Patient has history of breast feeding. Risk Values: Saarh 5 year model risk: 0.6%. NCI Lifetime model risk: 9.7%. Technique: Method: Targeted. Findings: The area of palpable concern of the right breast and the axilla of the right breast were scanned. Normal-appearing lymph node is present. No suspicious masses or cysts evident. Normal vascular structures present.. Overall Assessment: Negative, BI-RAD 1 Management: Screening Mammogram of both breasts in 1 year. A clinical breast exam by your physician is recommended on an annual basis and results should be correlated with mammographic findings. This exam should not preclude additional follow-up of suspicious palpable abnormalities. Results were given to the patient verbally at the time of exam. [facility], , 09/15/2024 10:46 AM. Electronically signed and approved by: Remigio Kaiser D.O. Radiologis
--- NOTE | 2024-09-15 10:49 | MM ---
Reason for Exam: Clinical finding. Baseline mammogram. Patient History: Menarche at age 11. First Full-Term at age 22. Patient has history of breast feeding. Last menstrual period: 08/26/2024 Risk Values: Sarah 5 year model risk: 0.6%. NCI Lifetime model risk: 9.7%. Prior Study Comparison: Patient's first Mammogram. Tissue Density: The breasts are heterogeneously dense, which may obscure small masses. Findings: Analyzed By CAD. The pattern is symmetrical. No discrete suspicious spiculated or lobular masses evident. Lymphadenopathy is within the right axilla. No suspicious groups of microcalcifications, spiculated or lobular masses, architectural distortion or other secondary signs of malignancy are mammographically apparent. Overall Assessment: Incomplete: need additional imaging evaluation, BI-RAD 0 Management: Diagnostic Breast Ultrasound of the right breast. A negative mammogram report should not preclude additional follow up of suspicious palpable abnormalities. Patient should continue monthly self breast exam. A clinical breast exam by your physician is recommended on an annual basis and results should be correlated with mammographic findings. Note on Sarah scores and lifetime risk: 1. A Sarah score greater than 3% is considered moderate risk. If this is the case, consider specialist referral to assess eligibility for a risk reducing agent. 2. If overall lifetime risk for the development of breast cancer is 20% or higher, the patient may qualify for future screening with alternating mammogram and breast MRI. [facility], , 09/15/2024 10:47 AM. Electronically signed and approved by: Remigio Kaiser D.O. Radiologis
== END | disposition home or self-care (01) ==
LOC: RADMAMWWP 09:28
PROVIDERS: ATTEND Family Medicine
DX: R92.333 Mammographic heterogeneous density, bilateral breasts (principal)
CPT/HCPCS: 77066; 76642; G0279; 77062